=== PATIENT | female | born 1955 | race Caucasian/White ===

== ENCOUNTER 2017-01-07 08:37 | Day surgery (SDC) | payer BC ==
[~2017-01-07] VITALS: Ht 170.2 cm; Wt 131.5 kg
--- NOTE | ~2017-01-07 | EGD ---
EGD REPORT [facility] [address] [address] NAME: DEANNE ELLIS : [birth year] STATUS : REG [facility]#: [id number] AGE: 61 ADM/REG DATE : 01/07/17 MR#: [id number] REPORT SERV DATE: 01/07/17 DICTATED BY: YAMILE OCONNOR DATE: 01/07/17 REPORT STATUS : Draft TRANSCRIBED BY: [employer] DATE: 01/07/17 [facility] Patient Name: Deanne Ellis Date of : 1955 Attending MD: YAMILE OCONNOR, Procedure Date No Time: 01/07/2017 Procedure: Upper EUS Indications: Esophageal squamous cell carcinoma/Post-chemotherapy, Esophageal squamous cell carcinoma/Post-radiation Referring MD: KARRIE SAENZ, SUSI FORD MD Medicines: Monitored Anesthesia Care Complications: No immediate complications. Estimated blood loss: None. Procedure: Pre-Anesthesia Assessment: - ASA Grade Assessment: III - A patient with severe systemic disease. After obtaining informed consent, the endoscope was passed under direct vision. Throughout the procedure, the patient's blood pressure, pulse, and oxygen saturations were monitored continuously. The GIF [id number] was introduced through the mouth, and advanced to the second part of duodenum. The Endoscope was introduced through the mouth, and advanced to the second part of duodenum. Findings: Endoscopic Finding : A medium-sized scar was found in the middle third of the esophagus. Biopsies were taken with a cold forceps for histology. Verification of patient identification for the specimen was done. Estimated blood loss was minimal. The exam of the esophagus was otherwise normal. Localized moderate inflammation characterized by erosions and erythema was found in the gastric antrum. Biopsies were taken with a cold forceps for histology. Verification of patient identification for the specimen was done. Estimated blood loss was minimal. The cardia and gastric fundus were normal on retroflexion. The examined duodenum was endoscopically normal. Endosonographic Finding : There was no sign of significant endosonographic abnormality in the esophagus. Endosonographic images of the stomach were unremarkable. There was no sign of significant endosonographic abnormality in the examined duodenum. There was no sign of significant endosonographic abnormality in the entire pancreas. EGD REPORT [address] [address] NAME: DEANNE ELLIS : [birth year] STATUS : REG [facility] PAT#: [id number] AGE: 61 ADM/REG DATE : 01/07/17 MR#: [id number] REPORT SERV DATE: 01/07/17 DICTATED BY: YAMILE OCONNOR DATE: 01/07/17 REPORT STATUS : Draft TRANSCRIBED BY: [employer] DATE: 01/07/17 There was no sign of significant endosonographic abnormality in the common bile duct. Impression: - Scar in the middle third of the esophagus. Biopsied. - Gastritis. Biopsied. - Normal examined duodenum. - There was no sign of significant pathology in the esophagus. - Endosonographic images of the stomach were unremarkable. - There was no sign of significant pathology in the examined duodenum. - There was no sign of significant pathology in the entire pancreas. - There was no sign of significant pathology in the common bile duct. Recommendation: - Return to previous diet. - Continue present medications. - Await path results. - Repeat the upper endoscopic ultrasound in 1 year for surveillance. Procedure Code(s): --- Professional --- 10432, Esophagogastroduodenoscopy, flexible, transoral; with endoscopic ultrasound examination, including the esophagus, stomach, and either the duodenum or a surgically altered stomach where the jejunum is examined distal to the anastomosis 06217, 59, Esophagogastroduodenoscopy, flexible, transoral; with biopsy, single or multiple Diagnosis Code(s): --- Professional --- K22.8, Other specified diseases of esophagus K29.70, Gastritis, unspecified, without bleeding C15.9, Malignant neoplasm of esophagus, unspecified Z08, Encounter for follow-up examination after completed treatment for malignant neoplasm CPT copyright 2013 [employer]. All rights reserved. The codes documented in this report are preliminary and upon coil builder review may be revised to meet current compliance requirements. YAMILE OCONNOR EGD REPORT [id number] [place]. [address] NAME: DEANNE ELLIS : [birth year] STATUS : REG [facility] PAT#: [id number] AGE: 61 ADM/REG DATE : 01/07/17 MR#: [id number] REPORT SERV DATE: 01/07/17 DICTATED BY: YAMILE OCONNOR DATE: 01/07/17 REPORT STATUS : Draft TRANSCRIBED BY: [employer] DATE: 01/07/17 01/07/2017 10:35 AM Number of Addenda: 0 Note Initiated On: 01/07/2017 9:58 AM Scope Withdrawal Time 0 hours 0 minutes 0 seconds
[~2017-01-07 08:37] MED LIST: ADVAIR250 INH; ALBUTEROL5 INH; CEFT5 PO; GARLIC SUPPLEMENT; KLOR-CON M2020 MEQ PO; L20 PO; LORTAB 5 PO; LORTAB10 PO; NORCO1 TAB PO; POTASSIUM PO; PRILO PO; SPIRIVA INH; STERAPRED DS10 MG; X5 PO; XANAX1 MG PO; ZOL100 PO; ZOL50 PO; [UNRECOGNIZED DRUG - OTHER]
[2017-01-07 09:08] LABS: BUN (BLOOD UREA NITROGEN) 12 MG/DL (6-23); CALCIUM, SERUM 9.2 MG/DL (8.5-10.4); CHLORIDE, SERUM 104 MMOL/L (96-112); CO2 (CARBON DIOXIDE) 28 MMOL/L (24-34); CREATININE 0.82 MG/DL (0.55-1.02); GFR AFRICAN AMERICAN 91 ML/MIN (>=60); GFR NON AFRICAN AMERICAN 78 ML/MIN (>=60); GLUCOSE, SERUM 101 MG/DL (60-99); POTASSIUM, SERUM 3.5 MMOL/L (3.5-5.3); SODIUM, SERUM 137 MMOL/L (135-148)
== END 2017-01-07 23:59 | disposition home or self-care (01) ==
LOC: DMU 08:37
PROVIDERS: Anesthesiology; Internal Medicine Gastroenterology
PROC: 0DB68ZX Excision of Stomach, Via Natural or Artificial Opening Endoscopic, Diagnostic (ICD-10-PCS; 2017-01-07)
PROC: 0DJ08ZZ Inspection of Upper Intestinal Tract, Via Natural or Artificial Opening Endoscopic (ICD-10-PCS; 2017-01-07)
PROC: 0DB58ZX Excision of Esophagus, Via Natural or Artificial Opening Endoscopic, Diagnostic (ICD-10-PCS; principal; 2017-01-07 10:00)
DX: Z08 Encounter for follow-up examination after completed treatment for malignant neoplasm (principal); K22.8 Other specified diseases of esophagus; J44.9 Chronic obstructive pulmonary disease, unspecified; K21.9 Gastro-esophageal reflux disease without esophagitis; Z79.899 Other long term (current) drug therapy; Z98.890 Other specified postprocedural states; Z87.891 Personal history of nicotine dependence; Z85.01 Personal history of malignant neoplasm of esophagus
CPT/HCPCS: 80048; 88305